=== PATIENT | male | born 1970 | race Two or more races ===

== ENCOUNTER → 2017-10-15 08:45 | Outpatient (CLI) | payer OTHER ==
[~2017-10-15 08:45] MED LIST: CATAFLAM 50 MG PO; CATAFLAM50 MG; CATAFLAM50 MG PO; ENALAPRIL MALEAT5 MG; ENALAPRIL MALEAT5 MG PO; GEMFIBROZIL600 MG PO; GLUCOPHAGE XR500 MG PO; LANTUS SOLOSTAR3 ML; METROPOLOL PO; PLAVIX75 MG; PLAVIX75 MG PO; PRAVACHOL80 MG; PRAVASTATIN SOD40 MG; PRAVASTATIN SOD40 MG PO; TOPROL XL50 M1; ULTRACET; ULTRACET PO; VASOTEC10 MG NGT; VASOTEC10 MG PO; VOLTAREM 50 MG; VOLTAREM 50 MG PO; ZYRTEC10 M3; ZYRTEC10 M3 PO
== END | disposition home or self-care (01) ==
LOC: LAB 08:45
DX: E11.8 Type 2 diabetes mellitus with unspecified complications (principal); I10 Essential (primary) hypertension; E78.4 Other hyperlipidemia

== ENCOUNTER → 2017-10-19 12:02 | Outpatient (CLI) | payer OTHER ==
[~2017-10-19] VITALS: Ht 152.4 cm; Wt 88.5 kg
== END | disposition home or self-care (01) ==
LOC: PPHC 12:02
DX: L03.113 Cellulitis of right upper limb (principal)

== ENCOUNTER 2017-10-25 12:47 | Outpatient (CLI) | payer OTHER | END 2017-10-25 12:54 | disposition home or self-care (01) | LOC: NUCLEAR 12:47 | DX: I10 Essential (primary) hypertension (principal); I25.10 Atherosclerotic heart disease of native coronary artery without angina pectoris ==

== ENCOUNTER → 2017-10-27 15:42 | Outpatient (CLI) | payer OTHER | END | disposition home or self-care (01) | LOC: LAB 15:42 | DX: M13.0 Polyarthritis, unspecified (principal) ==

== ENCOUNTER 2017-12-08 15:47 | Outpatient (CLI) | payer OTHER | END 2017-12-08 16:00 | disposition home or self-care (01) | LOC: LAB 15:47 | DX: N20.0 Calculus of kidney (principal); Z51.81 Encounter for therapeutic drug level monitoring ==

== ENCOUNTER → 2017-12-20 | Outpatient (CLI) | payer OTHER | END | disposition home or self-care (01) | LOC: PPHC 08:14 | DX: Z00.8 Encounter for other general examination (principal) ==

== ENCOUNTER 2017-12-21 06:08 | Outpatient (CLI) | payer OTHER | END 2017-12-21 07:40 | disposition home or self-care (01) | LOC: LAB 06:08 | DX: E11.9 Type 2 diabetes mellitus without complications (principal); I10 Essential (primary) hypertension; E78.5 Hyperlipidemia, unspecified ==

== ENCOUNTER → 2018-02-17 06:15 | Outpatient (CLI) | payer OTHER | END | disposition home or self-care (01) | LOC: LAB 06:15 | DX: I10 Essential (primary) hypertension (principal); E11.8 Type 2 diabetes mellitus with unspecified complications; E78.5 Hyperlipidemia, unspecified; I25.118 Atherosclerotic heart disease of native coronary artery with other forms of angina pectoris ==

== ENCOUNTER → 2018-04-08 07:33 | Outpatient (CLI) | payer OTHER | END | disposition home or self-care (01) | LOC: LAB 07:33 | DX: E78.2 Mixed hyperlipidemia (principal); I10 Essential (primary) hypertension; E11.8 Type 2 diabetes mellitus with unspecified complications; R80.2 Orthostatic proteinuria, unspecified; Z12.11 Encounter for screening for malignant neoplasm of colon; Z12.5 Encounter for screening for malignant neoplasm of prostate; E03.8 Other specified hypothyroidism ==

== ENCOUNTER → 2018-04-10 06:47 | Outpatient (CLI) | payer OTHER | END | disposition home or self-care (01) | LOC: LAB 06:47 | DX: I10 Essential (primary) hypertension (principal); E78.2 Mixed hyperlipidemia; E11.8 Type 2 diabetes mellitus with unspecified complications; R80.2 Orthostatic proteinuria, unspecified; Z12.11 Encounter for screening for malignant neoplasm of colon; Z12.5 Encounter for screening for malignant neoplasm of prostate; E03.8 Other specified hypothyroidism; Z86.79 Personal history of other diseases of the circulatory system ==

== ENCOUNTER 2018-07-15 07:20 | Outpatient (CLI) | payer OTHER | END 2018-07-15 07:26 | disposition home or self-care (01) | LOC: LAB 07:20 | DX: E11.65 Type 2 diabetes mellitus with hyperglycemia (principal); E78.4 Other hyperlipidemia ==

== ENCOUNTER 2018-08-12 07:14 | Outpatient (CLI) | payer OTHER | END 2018-08-12 07:20 | disposition home or self-care (01) | LOC: LAB 07:14 | DX: D64.89 Other specified anemias (principal); R10.84 Generalized abdominal pain; E78.49 Other hyperlipidemia ==

== ENCOUNTER → 2018-08-23 06:06 | Outpatient (CLI) | payer OTHER | END | disposition home or self-care (01) | LOC: LAB 06:06 | DX: I10 Essential (primary) hypertension (principal); E11.8 Type 2 diabetes mellitus with unspecified complications; E78.49 Other hyperlipidemia ==

== ENCOUNTER 2018-09-07 07:26 | Outpatient (CLI) | payer OTHER | END 2018-09-07 13:27 | disposition home or self-care (01) | LOC: SONOGRAMA 07:26 | DX: R10.84 Generalized abdominal pain (principal); N18.3 Chronic kidney disease, stage 3 (moderate); R31.9 Hematuria, unspecified ==

== ENCOUNTER 2018-09-25 08:55 | Outpatient (CLI) | payer OTHER | END 2018-09-25 08:56 | disposition home or self-care (01) | LOC: LAB 08:55 | DX: N18.3 Chronic kidney disease, stage 3 (moderate) (principal); E11.21 Type 2 diabetes mellitus with diabetic nephropathy; D63.1 Anemia in chronic kidney disease; N30.00 Acute cystitis without hematuria; E03.8 Other specified hypothyroidism; E78.49 Other hyperlipidemia ==

== ENCOUNTER 2018-10-19 12:01 | Outpatient (CLI) | payer OTHER | END 2018-10-19 12:39 | disposition home or self-care (01) | LOC: LAB 12:01 | DX: J11.1 Influenza due to unidentified influenza virus with other respiratory manifestations (principal); J06.9 Acute upper respiratory infection, unspecified ==

== ENCOUNTER 2018-10-25 06:26 | Outpatient (CLI) | payer OTHER | END 2018-10-25 06:30 | disposition home or self-care (01) | LOC: LAB 06:26 | DX: E11.65 Type 2 diabetes mellitus with hyperglycemia (principal); E78.00 Pure hypercholesterolemia, unspecified ==

== ENCOUNTER 2018-12-12 06:21 | Outpatient (CLI) | payer OTHER | END 2018-12-12 06:31 | disposition home or self-care (01) | LOC: LAB 06:21 | DX: D64.89 Other specified anemias (principal); R10.9 Unspecified abdominal pain; E03.8 Other specified hypothyroidism; E78.49 Other hyperlipidemia; R80.8 Other proteinuria; E11.9 Type 2 diabetes mellitus without complications; R73.09 Other abnormal glucose ==

== ENCOUNTER → 2018-12-26 | Outpatient (CLI) | payer OTHER | END | disposition home or self-care (01) | LOC: NUCLEAR 12:06 | DX: I25.10 Atherosclerotic heart disease of native coronary artery without angina pectoris (principal); I10 Essential (primary) hypertension ==

== ENCOUNTER → 2019-01-12 06:23 | Outpatient (CLI) | payer OTHER | END | disposition home or self-care (01) | LOC: LAB 06:23 | DX: E11.65 Type 2 diabetes mellitus with hyperglycemia (principal); E78.00 Pure hypercholesterolemia, unspecified; E87.5 Hyperkalemia ==

== ENCOUNTER 2019-02-12 06:19 | Outpatient (CLI) | payer OTHER | END 2019-02-12 06:24 | disposition home or self-care (01) | LOC: LAB 06:19 | DX: N40.0 Benign prostatic hyperplasia without lower urinary tract symptoms (principal) ==

== ENCOUNTER → 2019-05-11 06:06 | Outpatient (CLI) | payer OTHER | END | disposition home or self-care (01) | LOC: LAB 06:06 | DX: E11.65 Type 2 diabetes mellitus with hyperglycemia (principal) ==

== ENCOUNTER 2019-06-05 10:00 | Outpatient (CLI) | payer OTHER | END 2019-06-05 16:31 | disposition home or self-care (01) | LOC: LAB 10:00 | DX: J11.1 Influenza due to unidentified influenza virus with other respiratory manifestations (principal); R05 Cough ==

== ENCOUNTER → 2019-06-19 07:33 | Outpatient (CLI) | payer OTHER | END | disposition home or self-care (01) | LOC: LAB 07:33 | DX: D64.89 Other specified anemias (principal); R10.84 Generalized abdominal pain; E03.8 Other specified hypothyroidism; E78.49 Other hyperlipidemia; R80.8 Other proteinuria; E11.9 Type 2 diabetes mellitus without complications ==

== ENCOUNTER → 2019-08-16 06:10 | Outpatient (CLI) | payer OTHER | END | disposition home or self-care (01) | LOC: LAB 06:10 | DX: E11.65 Type 2 diabetes mellitus with hyperglycemia (principal); E78.00 Pure hypercholesterolemia, unspecified ==

== ENCOUNTER → 2019-08-24 06:09 | Outpatient (CLI) | payer OTHER | END | disposition home or self-care (01) | LOC: LAB 06:09 | DX: N40.0 Benign prostatic hyperplasia without lower urinary tract symptoms (principal) ==

== ENCOUNTER → 2019-11-13 06:11 | Outpatient (CLI) | payer OTHER | END | disposition home or self-care (01) | LOC: LAB 06:11 | DX: E11.65 Type 2 diabetes mellitus with hyperglycemia (principal); E78.00 Pure hypercholesterolemia, unspecified ==

== ENCOUNTER → 2019-12-21 07:01 | Outpatient (CLI) | payer OTHER | END | disposition home or self-care (01) | LOC: LAB 07:01 | DX: D64.89 Other specified anemias (principal); R10.84 Generalized abdominal pain; E78.49 Other hyperlipidemia ==

== ENCOUNTER 2020-01-08 09:11 | Outpatient (CLI) | payer OTHER | END 2020-01-08 09:21 | disposition home or self-care (01) | LOC: LAB 09:11 | DX: J11.1 Influenza due to unidentified influenza virus with other respiratory manifestations (principal) ==

== ENCOUNTER 2020-03-20 15:10 | Outpatient (CLI) | payer OTHER | END 2020-03-20 15:12 | disposition home or self-care (01) | LOC: LAB 15:10 | PROVIDERS: ATTEND Internal Medicine Endocrinology, Diabetes & Metabolism | DX: E11.65 Type 2 diabetes mellitus with hyperglycemia (principal); E78.00 Pure hypercholesterolemia, unspecified ==

== ENCOUNTER → 2020-05-03 07:28 | Outpatient (CLI) | payer OTHER | END | disposition home or self-care (01) | LOC: LAB 07:28 | DX: D64.89 Other specified anemias (principal); R10.84 Generalized abdominal pain; E78.49 Other hyperlipidemia; R80.8 Other proteinuria; R73.09 Other abnormal glucose ==

== ENCOUNTER 2020-06-26 10:00 | Outpatient (CLI) | payer OTHER | END 2020-06-26 15:00 | disposition home or self-care (01) | LOC: PPH VACUNA 10:00 | DX: Z23 Encounter for immunization (principal) ==

== ENCOUNTER 2020-10-23 06:54 | Outpatient (CLI) | payer OTHER | END 2020-10-23 07:00 | disposition home or self-care (01) | LOC: LAB 06:54 | PROVIDERS: ATTEND Internal Medicine | DX: E11.9 Type 2 diabetes mellitus without complications (principal); R10.84 Generalized abdominal pain; E78.49 Other hyperlipidemia; R80.8 Other proteinuria ==

== ENCOUNTER 2020-10-24 10:05 | Outpatient (CLI) | payer OTHER | END 2020-10-24 10:37 | disposition home or self-care (01) | LOC: NUCLEAR 10:05 | PROVIDERS: ATTEND Internal Medicine | DX: I50.22 Chronic systolic (congestive) heart failure (principal); I25.10 Atherosclerotic heart disease of native coronary artery without angina pectoris ==

== ENCOUNTER 2021-01-08 08:00 | Outpatient (CLI) | payer OTHER | END 2021-01-08 18:00 | disposition home or self-care (01) | LOC: LAB 08:00 | PROVIDERS: ATTEND Internal Medicine | DX: I10 Essential (primary) hypertension (principal); E11.9 Type 2 diabetes mellitus without complications; E78.49 Other hyperlipidemia; I25.790 Atherosclerosis of other coronary artery bypass graft(s) with unstable angina pectoris; E55.9 Vitamin D deficiency, unspecified; Z12.11 Encounter for screening for malignant neoplasm of colon; M54.5 Low back pain ==

== ENCOUNTER 2021-07-07 08:02 | Outpatient (CLI) | payer OTHER | END 2021-07-07 14:45 | disposition home or self-care (01) | LOC: PPH VACUNA 08:02 | PROVIDERS: ATTEND Emergency Medicine Pediatric Emergency Medicine | DX: Z23 Encounter for immunization (principal) ==

== ENCOUNTER → 2021-07-16 16:40 | Outpatient (CLI) | payer OTHER | END | disposition home or self-care (01) | LOC: PPH VACUNA 16:40 | PROVIDERS: ATTEND Emergency Medicine Pediatric Emergency Medicine | DX: Z23 Encounter for immunization (principal) ==

== ENCOUNTER → 2021-09-08 06:55 | Outpatient (CLI) | payer OTHER | END | disposition home or self-care (01) | LOC: LAB 06:55 | PROVIDERS: ATTEND Internal Medicine | DX: I10 Essential (primary) hypertension (principal); E11.9 Type 2 diabetes mellitus without complications ==

== ENCOUNTER → 2021-09-15 06:23 | Outpatient (CLI) | payer OTHER | END | disposition home or self-care (01) | LOC: LAB 06:23 | PROVIDERS: ATTEND Internal Medicine | DX: D64.89 Other specified anemias (principal); N39.0 Urinary tract infection, site not specified; R10.84 Generalized abdominal pain; E03.8 Other specified hypothyroidism; E78.5 Hyperlipidemia, unspecified; E55.9 Vitamin D deficiency, unspecified; R73.09 Other abnormal glucose; E78.2 Mixed hyperlipidemia; I10 Essential (primary) hypertension ==

== ENCOUNTER 2021-10-23 09:57 | Outpatient (CLI) | payer OTHER | END 2021-10-23 15:00 | disposition home or self-care (01) | LOC: LAB 09:57 | PROVIDERS: ATTEND Preventive Medicine Occupational Medicine | DX: U07.1 COVID-19 (principal) ==

== ENCOUNTER → 2021-11-25 07:30 | Outpatient (CLI) | payer OTHER | END | disposition home or self-care (01) | LOC: LAB 11-24 16:51 | PROVIDERS: ATTEND Internal Medicine | DX: D64.9 Anemia, unspecified (principal); N39.0 Urinary tract infection, site not specified; R10.9 Unspecified abdominal pain; E03.9 Hypothyroidism, unspecified; E78.5 Hyperlipidemia, unspecified; E55.9 Vitamin D deficiency, unspecified; R73.09 Other abnormal glucose; E78.2 Mixed hyperlipidemia; I10 Essential (primary) hypertension ==